=== PATIENT | female | born 1990 | race Caucasian/White ===

== ENCOUNTER 2018-01-31 12:44 | Emergency (ER) | payer OTHER ==
[~2018-01-31] VITALS: Ht 162.6 cm; Wt 98.0 kg
[~2018-01-31 12:44] MED LIST: BIRTH CONTROL; CETI10 PO; CYCL10 PO; DIPH50 PO; MULVITMINE PO; OXYACE5T PO; PRED5 PO; PREN-16 PO; Percocet 5-3251 EACH PO; [UNRECOGNIZED DRUG - REMARK]
[2018-01-31] MEDS ORDERED: Flonase 0.05% N16 GM (13:34)
[2018-01-31] MEDS ORDERED: Sudogest30 MG PO (13:34)
[2018-01-31] MEDS ORDERED: BENZ100A PO (13:34)
== END 2018-01-31 13:45 | disposition home or self-care (01) ==
LOC: ER 12:44
DX: J02.9 Acute pharyngitis, unspecified (principal); J32.9 Chronic sinusitis, unspecified; Z88.8 Allergy status to other drugs, medicaments and biological substances; Z87.891 Personal history of nicotine dependence
CPT/HCPCS: 87081; 87147; 87430; 99283; J1100

== ENCOUNTER 2023-04-30 13:10 | Emergency (ER) | payer OTHER ==
[~2023-04-30] VITALS: Ht 162.6 cm; Wt 106.1 kg
[~2023-04-30 13:10] MED LIST changes: +AZITHROMYCIN250 MG PO; +BENZ100A PO; +Flonase 0.05% N16 GM; +Sudogest30 MG PO
[2023-04-30 13:19] VITALS: BP 181/92
== END 2023-04-30 14:43 | disposition home or self-care (01) ==
LOC: ER 13:10
DX: S83.92XA Sprain of unspecified site of left knee, initial encounter (principal); F17.210 Nicotine dependence, cigarettes, uncomplicated; X50.0XXA Overexertion from strenuous movement or load, initial encounter
CPT/HCPCS: 29505; 73562-LT; 99283-25